=== PATIENT | male | born 1940 | race Caucasian/White ===

== ENCOUNTER 2020-05-08 11:04 | Emergency (ER) | payer OTHER, MEDICARE ==
[~2020-05-08] VITALS: Ht 170.2 cm; Wt 63.0 kg
[~2020-05-08 11:04] MED LIST: ASPIR 8181 MG PO; DOXYCYCLINE 10100 M1 PO; IBUPROFEN 200200 M1 PO; MUCINEX DM ER1 EAC1 PO; ZOFRAN4 MG PO
[2020-05-08] MEDS ORDERED: IRON159 MG PO (12:39)
[2020-05-08] MEDS ORDERED: TRAVATAN Z5 ML EA. EYE (12:40)
[2020-05-08 13:08] LABS: HEMATOCRIT 38.7 % (42.0-52.0); HEMOGLOBIN 13.4 gm/dL (14.0-18.0); MCH 33.4 pg (26.0-34.0); MCHC 34.7 g/dL (28.0-37.0); MCV 96.1 fL (80.0-100.0); PLATELET COUNT 45 thou/uL (150-400); RBC 4.03 mil/uL (4.50-6.00); RDW 13.2 % (10.5-14.5)
[2020-05-08 13:14] LABS: CALCIUM 7.6 mg/dL (8.5-10.1); CREATININE 0.8 mg/dL (0.7-1.3); POTASSIUM 4.3 mmol/L (3.5-5.1)
[2020-05-08 13:15] LABS: WBC 1.7 thou/uL (4.0-11.0)
[2020-05-08 13:18] LABS: URINE BILIRUBIN NEGATIVE (Negative); URINE BLOOD NEGATIVE (Negative); URINE CLARITY CLEAR; URINE COLOR YELLOW; URINE GLUCOSE-RANDOM* NEGATIVE (Negative); URINE KETONES TRACE (Negative); URINE LEUKOCYTES-REFLEX NEGATIVE (Negative); URINE NITRITE-REFLEX NEGATIVE (Negative); URINE PROTEIN (DIPSTICK) TRACE (Negative)
[2020-05-08 13:20] LABS: ALBUMIN 2.9 g/dL (3.4-5.0); TOTAL BILIRUBIN 0.7 mg/dL (0.2-1.0); TOTAL PROTEIN 5.8 g/dL (6.4-8.2)
[2020-05-08 14:17] LABS: ABSOLUTE NEUTROPHILS 1.2 thou/uL (1.4-8.2); ATYPICAL LYMPHS 8 %
[2020-05-08 14:21] LABS: ANISOCYTOSIS SLIGHT
[2020-05-08] MEDS ORDERED: DOXYCYCLINE 10100 MG PO (17:59)
[2020-05-08 18:40] VITALS: BP 132/70
[2020-05-09 06:06] LABS: HAV IgM AB (ANTI-HAV IgM) Negative (Negative); HEPATITIS B SURFACE AG Negative (Negative); HEPATITIS C VIRUS AB <0.1 (0.0-0.9)
== END 2020-05-08 18:40 | disposition home or self-care (01) ==
LOC: ER 11:04
PROVIDERS: Emergency Medicine; Physician Assistant
DX: R50.9 Fever, unspecified (principal); M79.10 Myalgia, unspecified site; Z20.828 Contact with and (suspected) exposure to other viral communicable diseases; E87.1 Hypo-osmolality and hyponatremia; D61.818 Other pancytopenia; R74.0 Nonspecific elevation of levels of transaminase and lactic acid dehydrogenase [LDH]; Z98.890 Other specified postprocedural states; Z79.82 Long term (current) use of aspirin; Z79.899 Other long term (current) drug therapy